=== PATIENT | male | born 1990 | race Caucasian/White ===

== ENCOUNTER 2025-02-05 22:26 | Observation (INO) | payer OTHER ==
--- NOTE | 2025-02-05 22:53 | ED ---
General Adult HPI - General Chief complaint: Alcohol Stated complaint: ETOH Time Seen by Provider: 02/05/25 22:29 Source: patient, EMS - History of Present Illness Initial comments: Patient is a 34 y/o male presenting today for alcohol intoxication. Of note EMS report pt states that he drank mouth wash however he denies this to me. Pt states he drank a 1/2 gallon of vodka today and drinks approx 1 gallon per day. Denies SI. Pt currently denies any recent falls/ head injuries. Denies complaints. Hx is limited by alcohol intoxication . - Related Data Home Medications Medication Instructions Recorded Confirmed No Known Home Medications 02/06/25 02/06/25 Allergies Allergy/AdvReac Type Severity Reaction Status Date / Time No Known Allergies Allergy Verified 02/09/25 01:50 Review of Systems ROS Statement: Those systems with pertinent positive or pertinent negative responses have been documented in the HPI. ROS Other: All systems not noted in ROS Statement are negative. Past Medical History Past Medical History: No Reported History History of Any Multi-Drug Resistant Organisms: None Reported Past Surgical History: No Surgical Hx Reported Smoking Status: Never smoker Past Alcohol Use History: Heavy Past Drug Use History: None Reported General Exam - General Exam Comments Initial Comments: PE: CONSTITUTIONAL: No apparent distress, well appearing, disheveled, smells strongly of alcohol SKIN: Warm, dry, no jaundice, hives or petechiae EYES: Pupils are equally round, extraocular movements intact without nystagmus, clear conjunctiva, non-icteric sclera HENT: Normocephalic, atraumatic, moist mucus membranes, oropharynx clear without exudates NECK: , Full range of motion, normal appearance PULMONARY: Clear to auscultation without wheezes, rhonchi, or rales, normal excursion, no accessory muscle use and no stridor CARDIOVASCULAR: Regular rate, rhythm, normal S1 and S2. No appreciated murmurs, rubs or gallops. Strong radial pulses with intact distal perfusion. No lower extremity edema GASTROINTESTINAL: Soft, active bowel sounds throughout, non-tender, non- distended, no palpable masses, no rebound or guarding. No hepatosplenomegaly: MUSCULOSKELETAL: Extremities have no gross deformity or signs of injury NEUROLOGIC:_a/o x 3, GCS 15, appears intoxicated, Moves all extremities x 4 without motor or sensory deficit PSYCHIATRIC:_normal mood and affect, thought process is linear Course Vital Signs 02/05/25 02/06/25 02/06/25 22:27 01:15 05:24 Temperature 97.6 F Pulse Rate 80 82 73 Respiratory 18 18 18 Rate Blood Pressure 115/69 118/82 107/74 O2 Sat by Pulse 96 99 96 Oximetry EKG Findings - EKG Comments: EKG Findings:: Sinus rhythm, rate 73 bpm intervals and except limits, no significant ST elevations or depressions, no arrhythmia Medical Decision Making - Medical Decision Making Was pt. sent in by a medical professional or institution (, PA, LEAD HOUSEKEEPER, urgent care, hospital, or senior living...) When possible be specific @ -No Did you speak to anyone other than the patient for history (EMS, parent, family, police, friend...)? What history was obtained from this source @ -No Did you review nursing and triage notes (agree or disagree)? Why? @ -I reviewed nursing and triage notes- of note states that pt drank mouthwash as well however pt denies this to myself Were old charts reviewed (outside hosp., previous admission, EMS record, old EKG, old radiological studies, urgent care reports/EKG's, senior living records)? Report findings @ -Medical records reviewed- no prior records for review Differential Diagnosis (chest pain, altered mental status, abdominal pain women, abdominal pain men, vaginal bleeding, weakness, fever, dyspnea, syncope, headache, dizziness, GI bleed, back pain, seizure, CVA, palpatations, mental health, musculoskeletal)? Differential diagnosis remains broad however top considerations include alcohol intoxication, polysubstance abuse, drug use, wernicke's encephalopathy, hyp oglycemia, this is not an all inclusive list EKG interpreted by me (3pts min.). @ -As above X-rays interpreted by me (1pt min.). @ -None done CT interpreted by me (1pt min.). @ -None done U/S interpreted by me (1pt. min.). @ -None done What testing was considered but not performed or refused? (CT, X-rays, U/S, labs)? Why? @ -None What meds were considered but not given or refused? Why? @ -None Did you discuss the management of the patient with other professionals (professionals i.e. , PA, LEAD HOUSEKEEPER, lab, RT, psych nurse, director social service, molder apprentice, teacher, president and chief executive officer, leather case finisher)? Give summary @ -No Was smoking cessation discussed for >3mins.? @ -No Was critical care preformed (if so, how long)? @ -No Were there social determinants of health that impacted care today? How? (Homelessness, low income, unemployed, alcoholism, drug addiction, transportation, low edu. Level, literacy, decrease access to med. care, intermediate, rehab)? @ -No Was there de-escalation of care discussed even if they declined (Discuss DNR or withdrawal of care, Hospice)? @ -No What co-morbidities impacted this encounter? (DM, HTN, Smoking, COPD, CAD, Cancer, CVA, ARF, Chemo, Hep., AIDS, mental health diagnosis, sleep apnea, morbid obesity)? alcoholism Was patient admitted / discharged? Hospital course, mention meds given and route, prescriptions, significant lab abnormalities, going to OR and other pertinent info. Admission- 34 y/o gentleman presenting today for alcohol intoxication. Pt denied co-ingestants to myself. Will obtain basic labs to ensure no severe electrolyte derangements, as well as blood alcohol. Pt will be monitored for signs of alcohol withdrawal. Labs are significant for mild hyponatremia sodium 146, potassium 3.3, UDS negative, blood alcohol 258. Patient will be started on D5 half-normal saline infusion. Due to extent of alcohol intoxication and amount of time it will require for pt to metabolize alcohol and become clinically sober, will be admitted for observation as he is high risk for alcohol withdrawal during this observation period. Pt discussed with Dr. Shelley, who kindly acccepted pt for admission. Undiagnosed new problem with uncertain prognosis? @ -No Drug Therapy requiring intensive monitoring for toxicity (Heparin, Nitro, Insulin, Cardizem)? @ -No Were any procedures done? @ -No Diagnosis/symptom? hypernatremia, alcohol intoxication hypokalemia Acute, or Chronic, or Acute on Chronic? @ acute Uncomplicated (without systemic symptoms) or Complicated (systemic symptoms)? @ uncomplicated Side effects of treatment? @ -No Exacerbation, Progression, or Severe Exacerbation? @ -No Poses a threat to life or bodily function? How? (Chest pain, [place], [place], pneumonia, PE, COPD, DKA, ARF, appy, cholecystitis, CVA, Diverticulitis, Homicidal, Suicidal, threat to staff... and all critical care pts) @unlikely - Lab Data Result diagrams: 02/05/25 23:06 02/05/25 23:06 Lab Results 02/05/25 02/05/25 02/05/25 Range/Units 23:06 23:06 23:06 WBC 8.38 (4.50-10.00) 10*3/uL RBC 4.15 L (4.40-5.60) 10*6/uL Hgb 12.7 L (13.0-17.0) g/dL Hct 37.1 L (39.6-50.0) % MCV 89.4 (80.0-97.0) fL MCH 30.6 (27.0-32.0) pg MCHC 34.2 (32.0-37.0) g/dL Plt Count 258 (140-440) 10*3/uL MPV 10.0 (9.5-12.2) fL Immature Gran % (Auto) 0.2 % Neutrophils % 48.8 % Lymphocytes % 42.8 % Monocytes % 6.7 % Eosinophils % 0.8 % Basophils % 0.7 % Immature Gran # 0.02 (0.00-0.04) 10*3/uL Neutrophils # 4.08 (1.80-7.70) 10*3/uL Lymphocytes # 3.59 (0.90-5.00) 10*3/uL Monocytes # 0.56 (0.20-1.00) 10*3/uL Eosinophils # 0.07 (0.04-0.35) 10*3/uL Basophils # 0.06 (0.00-0.10) 10*3/uL Sodium 146 H (137-145) mmol/L Potassium 3.3 L (3.5-5.1) mmol/L Chloride 110 H (98-107) mmol/L Carbon Dioxide 21 L (22-30) mmol/L Anion Gap 15 mmol/L BUN 12 (9-20) mg/dL Creatinine 0.75 (0.66-1.25) mg/dL Est GFR (CKD-EPI)AfAm >90 (>60 ml/min/1.73 sqM) Est GFR (CKD-EPI)NonAf >90 (>60 ml/min/1.73 sqM) Glucose 96 (74-99) mg/dL POC Glucose (mg/dL) 111 H (70-110) mg/dL POC Glu Electrician'S Assistant ID Elizabeth Martinez Calcium 9.4 (8.4-10.2) mg/dL Phosphorus 4.2 (2.5-4.5) mg/dL Magnesium 1.7 (1.6-2.3) mg/dL Total Bilirubin 0.5 (0.2-1.3) mg/dL AST 41 (17-59) U/L ALT 23 (4-49) U/L Alkaline Phosphatase 50 (38-126) U/L Total Protein 7.4 (6.3-8.2) g/dL Albumin 4.6 (3.5-5.0) g/dL Urine Opiates Screen (NotDetected) Ur Oxycodone Screen (NotDetected) Urine Methadone Screen (NotDetected) Ur Barbiturates Screen (NotDetected) U Tricyclic Antidepress (NotDetected) Ur Phencyclidine Scrn (NotDetected) Ur Amphetamines Screen (NotDetected) U Methamphetamines Scrn (NotDetected) U Benzodiazepines Scrn (NotDetected) Urine Cocaine Screen (NotDetected) U Marijuana (THC) Screen (NotDetected) Serum Alcohol 258 H* mg/dL 02/06/25 Range/Units 04:04 WBC (4.50-10.00) 10*3/uL RBC (4.40-5.60) 10*6/uL Hgb (13.0-17.0) g/dL Hct (39.6-50.0) % MCV (80.0-97.0) fL MCH (27.0-32.0) pg MCHC (32.0-37.0) g/dL Plt Count (140-440) 10*3/uL MPV (9.5-12.2) fL Immature Gran % (Auto) % Neutrophils % % Lymphocytes % % Monocytes % % Eosinophils % % Basophils % % Immature Gran # (0.00-0.04) 10*3/uL Neutrophils # (1.80-7.70) 10*3/uL Lymphocytes # (0.90-5.00) 10*3/uL Monocytes # (0.20-1.00) 10*3/uL Eosinophils # (0.04-0.35) 10*3/uL Basophils # (0.00-0.10) 10*3/uL Sodium (137-145) mmol/L Potassium (3.5-5.1) mmol/L Chloride (98-107) mmol/L Carbon Dioxide (22-30) mmol/L Anion Gap mmol/L BUN (9-20) mg/dL Creatinine (0.66-1.25) mg/dL Est GFR (CKD-EPI)AfAm (>60 ml/min/1.73 sqM) Est GFR (CKD-EPI)NonAf (>60 ml/min/1.73 sqM) Glucose (74-99) mg/dL POC Glucose (mg/dL) (70-110) mg/dL POC Glu Electrician'S Assistant ID Calcium (8.4-10.2) mg/dL Phosphorus (2.5-4.5) mg/dL Magnesium (1.6-2.3) mg/dL Total Bilirubin (0.2-1.3) mg/dL AST (17-59) U/L ALT (4-49) U/L Alkaline Phosphatase (38-126) U/L Total Protein (6.3-8.2) g/dL Albumin (3.5-5.0) g/dL Urine Opiates Screen Not Detected (NotDetected) Ur Oxycodone Screen Not Detected (NotDetected) Urine Methadone Screen Not Detected (NotDetected) Ur Barbiturates Screen Not Detected (NotDetected) U Tricyclic Antidepress Not Detected (NotDetected) Ur Phencyclidine Scrn Not Detected (NotDetected) Ur Amphetamines Screen Not Detected (NotDetected) U Methamphetamines Scrn Not Detected (NotDetected) U Benzodiazepines Scrn Not Detected (NotDetected) Urine Cocaine Screen Not Detected (NotDetected) U Marijuana (THC) Screen Not Detected (NotDetected) Serum Alcohol mg/dL Disposition Clinical Impression: Alcoholic intoxication, Hypernatremia Disposition: ADMITTED IP TO THIS [facility] Condition: Fair
[2025-02-05 23:07] LABS: Glucose,Whole Blood 111 mg/dL (70-110)
[2025-02-05] MEDS: SODIUM CHLORIDE 0.9% 1,000 ML IV STA (23:09)
[2025-02-05 23:37] LABS: Basophils # (A) 0.06 10*3/uL (0.00-0.10); Basophils % (A) 0.7 %; Eosinophils # (A) 0.07 10*3/uL (0.04-0.35); Eosinophils % (A) 0.8 %; HCT 37.1 % (39.6-50.0); HGB 12.7 g/dL (13.0-17.0); Lymphocytes # (A) 3.59 10*3/uL (0.90-5.00); Lymphocytes % (A) 42.8 %; MCH 30.6 pg (27.0-32.0); MCHC 34.2 g/dL (32.0-37.0); MCV 89.4 fL (80.0-97.0); Monocytes # (A) 0.56 10*3/uL (0.20-1.00); Monocytes % (A) 6.7 %; Neutrophils # (A) 4.08 10*3/uL (1.80-7.70); Neutrophils % (A) 48.8 %; Platelet Count 258 10*3/uL (140-440); RBC 4.15 10*6/uL (4.40-5.60); RDW 13.1 % (11.5-14.5); WBC 8.38 10*3/uL (4.50-10.00)
[2025-02-06 00:02] LABS: ALT 23 U/L (4-49); AST 41 U/L (17-59); African American GFR (CKD) >90 (>60 ml/min/1.73 sqM); Albumin 4.6 g/dL (3.5-5.0); Alkaline Phosphatase 50 U/L (38-126); Anion Gap 15 mmol/L; Blood Urea Nitrogen 12 mg/dL (9-20); Calcium 9.4 mg/dL (8.4-10.2); Carbon Dioxide 21 mmol/L (22-30); Chloride 110 mmol/L (98-107); Glucose 96 mg/dL (74-99); Magnesium 1.7 mg/dL (1.6-2.3); Non-African American GFR(CKD) >90 (>60 ml/min/1.73 sqM); Potassium 3.3 mmol/L (3.5-5.1); Sodium 146 mmol/L (137-145); Total Protein 7.4 g/dL (6.3-8.2)
[2025-02-06 04:27] LABS: Barbiturate Screen,Urine Not Detected (NotDetected); Benzodiazepines Screen,Urine Not Detected (NotDetected); Opiate Screen,Urine Not Detected (NotDetected); Oxycodone Screen, Urine Not Detected (NotDetected); Phencyclidine Screen,Urine Not Detected (NotDetected); Tricyclic Antidepressant,Urine Not Detected (NotDetected); Urn Cannabinoid Scrn Not Detected (NotDetected)
[2025-02-06] MEDS ORDERED: IBUPROFEN 400 MG TAB PO PRN (04:55)
[2025-02-06] MEDS ORDERED: NALOXONE 0.4 MG/ML 1 ML VIAL IV PRN (04:55)
[2025-02-06] MEDS ORDERED: chlordiazePOXIDE 25 MG CAP PO PRN ×3 (04:56)
[2025-02-06] MEDS ORDERED: LORazepam 1 MG TAB PO PRN (04:56)
[2025-02-06] MEDS ORDERED: LORazepam 1 MG/0.5 ML VIAL IV PRN (04:56)
[2025-02-06] MEDS: DEXTROSE 5%-0.45% NACL 1,000 ML IV ONE (05:35)
[2025-02-06] MEDS: ACETAMINOPHEN TAB 325 MG TAB PO PRN (06:22)
[2025-02-06] MEDS: chlordiazePOXIDE 25 MG CAP PO PRN (06:23)
[2025-02-06 07:45] VITALS: BP 111/67; PULSE 93; RESP 16; TEMP 98.1
[2025-02-06] MEDS: MULTIVITAMINS, THERA 1 EACH TAB PO SCH (09:26)
[2025-02-06] MEDS: FAMOTIDINE 20 MG TAB PO SCH (09:26)
[2025-02-06] MEDS: FOLIC ACID 1 MG TAB PO SCH (09:26)
--- NOTE | 2025-02-07 07:00 | P.HPIM ---
History of Present Illness H&P Date: 02/06/25 This is a 34-year-old male who presented to the emergency department with alcohol intoxication with an alcohol level of 258 and being admitted for acute EtOH as well as hyponatremia. Sodium was noted to be 146 and potassium 3.3, BUN is 12 with a creatinine of 0.75. Urine drug screen otherwise negative, hemoglobin stable at 12.7 and WBC within normal limits at 8.38. Patient does have a past medical history of hypertension, GERD, anxiety. Reports to being homeless and has no primary care provider at this time. Patient has been up this morning with a steady gait and does not appear to be withdrawing. Patient has no intentions of quitting alcohol and would like to leave today. Patient w as started on CIWA protocol. Patient reports he has to get back to work. REVIEW OF SYSTEMS: CONSTITUTIONAL: No fever, no malaise, no fatigue. HEENT: No recent visual problems or hearing problems. Denied any sore throat. CARDIOVASCULAR: No chest pain, orthopnea, PND, no palpitations, no syncope. PULMONARY: No shortness of breath, no cough, no hemoptysis. GASTROINTESTINAL: No diarrhea, no nausea, no vomiting, no abdominal pain. NEUROLOGICAL: No headaches, no weakness, no numbness. HEMATOLOGICAL: Denies any bleeding or petechiae. GENITOURINARY: Denies any burning micturition, frequency, or urgency. MUSCULOSKELETAL/RHEUMATOLOGICAL: Denies any joint pain, swelling, or any muscle pain. ENDOCRINE: Denies any polyuria or polydipsia. The rest of the 14-point review of systems is negative. PHYSICAL EXAMINATION: GENERAL: The patient is alert and oriented x3, not in any acute distress. Well developed, well nourished. Obese HEENT: Pupils are round and equally reacting to light. EOMI. No scleral icterus. No conjunctival pallor. Normocephalic, atraumatic. No pharyngeal erythema. No thyromegaly. CARDIOVASCULAR: S1 and S2 present. No murmurs, rubs, or gallops. PULMONARY: Chest is clear to auscultation, no wheezing or crackles. ABDOMEN: Soft, nontender, nondistended, normoactive bowel sounds. No palpable organomegaly. MUSCULOSKELETAL: No joint swelling or deformity. EXTREMITIES: No cyanosis, clubbing, or pedal edema. NEUROLOGICAL: Gross neurological examination did not reveal any focal deficits. SKIN: No rashes. Assessment: Acute alcohol intoxication History of hypertension Hypernatremia GERD Anxiety History of daily alcohol use Obesity with a BMI of 31.2 GI prophylaxis DVT prophylaxis Full code Plan: Patient was admitted for acute alcohol intoxication and also hyponatremia placed on CIWA protocol Patient is persistent on leaving and wanting to go home as he reports he has to work Patient has no intentions of quitting at this time and AA meetings and/or inpatient alcohol rehab suggested Patient will be leaving today. Guarded prognosis and high risk for readmissions given continued ongoing alcohol abuse The impression and plan of care has been dictated by Virginia Gallagher, Nurse Practitioner as directed. Dr. Haider MD I have performed a history and examination and MDM of this patient, discussed the same with the dictator, and agree with the dictator's assessment and plan as written ,documented as a scribe. Based on total visit time, I have performed more than 50% of the visit. Past Medical History Past Medical History: GERD/Reflux, Hypertension History of Any Multi-Drug Resistant Organisms: None Reported Past Surgical History: No Surgical Hx Reported Past Anesthesia/Blood Transfusion Reactions: Unable to Obtain Past Psychological History: Anxiety Smoking Status: Never smoker Past Alcohol Use History: Heavy Past Drug Use History: None Reported Medications and Allergies Home Medications Medication Instructions Recorded Confirmed Type No Known Home Medications 02/06/25 02/06/25 History Allergies Allergy/AdvReac Type Severity Reaction Status Date / Time No Known Allergies Allergy Verified 02/06/25 09:48 Physical Exam Vitals: Vital Signs Temp Pulse Resp BP Pulse Ox 02/06/25 07:44 98.1 F 93 16 111/67 97 Intake and Output 02/06/25 02/06/25 02/07/25 14:59 22:59 06:59 Intake Total 240 Balance 240 Intake: Oral 240 Other: Voiding Method Toilet Results CBC & Chem 7: 02/05/25 23:06 02/05/25 23:06 Thrombosis Risk Factor Assmnt - Choose All That Apply Any of the Below Risk Factors Present?: Yes Each Factor Represents 1 point: Obesity (BMI >25) Other Risk Factors: No Other congenital or acquired thrombophilia - If yes, enter type in comment: No Thrombosis Risk Factor Assessment Total Risk Factor Score: 1 Thrombosis Risk Factor Assessment Level: Low Risk
--- NOTE | 2025-02-07 08:54 | P.DS ---
Providers Date of admission: 02/06/25 04:56 Expected date of discharge: 02/06/25 Attending physician: Damien Maloney Primary care physician: Stated None Hospital Course: Final diagnosis Acute alcohol intoxication, blood alcohol level 258 on admission History of hypertension Hypernatremia GERD Anxiety History of daily alcohol use Obesity with a BMI of 31.2 GI prophylaxis DVT prophylaxis Full code Discharge disposition Patient is being discharged in a stable condition with guarded prognosis to home. Patient will follow-up with Dr. Douglas Maloney in the outpatient setting upon discharge. Patient is to avoid alcohol use and would strongly recommend inpatient alcohol rehab and/or AA meetings as scheduled. Total time taken is greater than 35 minutes. Hospital course This is a 34-year-old male who presented to the emergency department with alcohol intoxication with an alcohol level of 258 and being admitted for acute EtOH as well as hyponatremia. Sodium was noted to be 146 and potassium 3.3, BUN is 12 with a creatinine of 0.75. Urine drug screen otherwise negative, hemoglobin stable at 12.7 and WBC within normal limits at 8.38. Patient does have a past medical history of hypertension, GERD, anxiety. Reports to being h omeless and has no primary care provider at this time. Patient has been up this morning with a steady gait and does not appear to be withdrawing. Patient has no intentions of quitting alcohol and would like to leave today. Patient was started on CIWA protocol. Patient reports he has to get back to work. PHYSICAL EXAMINATION: GENERAL: The patient is alert and oriented x3, not in any acute distress. Well developed, well nourished. Obese HEENT: Pupils are round and equally reacting to light. EOMI. No scleral icterus. No conjunctival pallor. Normocephalic, atraumatic. No pharyngeal erythema. No thyromegaly. CARDIOVASCULAR: S1 and S2 present. No murmurs, rubs, or gallops. PULMONARY: Chest is clear to auscultation, no wheezing or crackles. ABDOMEN: Soft, nontender, nondistended, normoactive bowel sounds. No palpable organomegaly. MUSCULOSKELETAL: No joint swelling or deformity. EXTREMITIES: No cyanosis, clubbing, or pedal edema. NEUROLOGICAL: Gross neurological examination did not reveal any focal deficits. SKIN: No rashes. Please refer to medication reconciliation sheet for a list of medications. The impression and plan of care has been dictated by Virginia Gallagher, Nurse Practitioner as directed. Dr. Haider MD I have performed a history and examination and MDM of this patient, discussed the same with the dictator, and agree with the dictator's assessment and plan as written ,documented as a scribe. Based on total visit time, I have performed more than 50% of the visit. Patient Condition at Discharge: Fair Plan - Discharge Summary Discharge Rx Participant: Yes New Discharge Prescriptions: No Action No Known Home Medications Discharge Medication List No Known Home Medications 02/06/25 [History] Follow up Appointment(s)/Referral(s): None,Stated [Primary Care Provider] - 1-2 days Discharge Disposition: LEFT AGAINST MEDICAL ADVICE
[2025-02-07] MEDS ORDERED: THIAMINE 100 MG TAB PO SCH (09:00)
== END 2025-02-06 10:10 | disposition left against medical advice (07) ==
LOC: EC 22:26 → 5NMEDONC 02-06 04:56
PROVIDERS: ADMIT Hospitalist; ATTEND Hospitalist
DX: F10.129 Alcohol abuse with intoxication, unspecified (principal); E87.0 Hyperosmolality and hypernatremia; E87.1 Hypo-osmolality and hyponatremia; I10 Essential (primary) hypertension; K21.9 Gastro-esophageal reflux disease without esophagitis; F41.9 Anxiety disorder, unspecified; E66.9 Obesity, unspecified; Z68.31 Body mass index [BMI] 31.0-31.9, adult; Y90.8 Blood alcohol level of 240 mg/100 ml or more; Z59.00 Homelessness unspecified
CPT/HCPCS: 99285; 36415; 93005; 80053; 83735; 84100; 85025; 80306; G0378; G0480; 80320

== ENCOUNTER 2025-02-09 01:40 | Emergency (ER) | payer OTHER ==
--- NOTE | 2025-02-09 02:23 | ED ---
General Adult HPI - General Chief complaint: Alcohol Stated complaint: Dizziness, Body Aches Time Seen by Provider: 02/09/25 01:54 Source: patient, EMS, RN notes reviewed, old records reviewed Mode of arrival: EMS Limitations: altered mental status - History of Present Illness Initial comments: 34-year-old male presenting with alcohol intoxication. Patient was recently admitted with alcohol intoxication and was offered rehabilitation. Patient declined at that time. Today he is stating that he wishes to go to [facility] rehabilitation. Patient states he is hungry and thirsty. He admits to heavy alcohol consumption today. No suicidal or homicidal ideation. - Related Data Home Medications Medication Instructions Recorded Confirmed No Known Home Medications 02/06/25 02/06/25 Allergies Allergy/AdvReac Type Severity Reaction Status Date / Time No Known Allergies Allergy Verified 02/09/25 01:50 Review of Systems ROS Statement: Those systems with pertinent positive or pertinent negative responses have been documented in the HPI. ROS Other: All systems not noted in ROS Statement are negative. Past Medical History Past Medical History: GERD/Reflux, Hypertension History of Any Multi-Drug Resistant Organisms: None Reported Past Surgical History: No Surgical Hx Reported Past Anesthesia/Blood Transfusion Reactions: Unable to Obtain Past Psychological History: Anxiety Smoking Status: Never smoker Past Alcohol Use History: Heavy Past Drug Use History: None Reported General Exam Limitations: altered mental status General appearance: alert, appears intoxicated Head exam: Present: atraumatic, normocephalic Eye exam: Present: normal appearance, PERRL ENT exam: Present: normal exam Neck exam: Present: normal inspection. Absent: tenderness, meningismus Respiratory exam: Present: normal lung sounds bilaterally. Absent: respiratory distress, wheezes Cardiovascular Exam: Present: regular rate, normal rhythm GI/Abdominal exam: Present: soft. Absent: distended, tenderness, guarding Neurological exam: Present: alert, oriented X3, CN II-XII intact. Absent: motor sensory deficit Psychiatric exam: Present: normal affect, normal mood Skin exam: Present: warm, dry, intact Course Vital Signs 02/09/25 01:43 Temperature 97.6 F Pulse Rate 70 Respiratory 20 Rate Blood Pressure 109/98 O2 Sat by Pulse 97 Oximetry Medical Decision Making - Medical Decision Making Was pt. sent in by a medical professional or institution (, PA, RECORD CENTER COORDINATOR, urgent care, hospital, or penitentiary...) When possible be specific @ -No Did you speak to anyone other than the patient for history (EMS, parent, family, police, friend...)? What history was obtained from this source @ -No Did you review nursing and triage notes (agree or disagree)? Why? @ -I reviewed and agree with nursing and triage notes Were old charts reviewed (outside hosp., previous admission, EMS record, old EKG, old radiological studies, urgent care reports/EKG's, penitentiary records)? Report findings @ -No old charts were reviewed Differential Diagnosis: Alcohol intoxication, electrolyte abnormality, dehydration, alcohol withdrawal syndrome EKG interpreted by me (3pts min.). @ -As above X-rays interpreted by me (1pt min.). @ -None done CT interpreted by me (1pt min.). @ -None done U/S interpreted by me (1pt. min.). @ -None done What testing was considered but not performed or refused? (CT, X-rays, U/S, labs)? Why? @ -None What meds were considered but not given or refused? Why? @ -None Did you discuss the management of the patient with other professionals (shan [email or web address] i.e. , PA, RECORD CENTER COORDINATOR, lab, RT, psych nurse, psych social worker, preschool program director, teacher, house officer, binder caser)? Give summary @ -No Was smoking cessation discussed for >3mins.? @ -No Was critical care preformed (if so, how long)? @ -No Were there social determinants of health that impacted care today? How? (Homelessness, low income, unemployed, alcoholism, drug addiction, transportation, low edu. Level, literacy, decrease access to med. care, alf, rehab)? @ -No Was there de-escalation of care discussed even if they declined (Discuss DNR or withdrawal of care, Hospice)? DNR status @ -No What co-morbidities impacted this encounter? (DM, HTN, Smoking, COPD, CAD, Cancer, CVA, ARF, Chemo, Hep., AIDS, mental health diagnosis, sleep apnea, morbid obesity)? @ -[Alcohol abuse Was patient admitted / discharged? Hospital course, mention meds given and route, prescriptions, significant lab abnormalities, going to OR and other pertinent info. @ -34-year-old male with alcohol intoxication, patient requesting rehabilitation through [facility]. Patient is given contact information for [facility] and allowed to sober up in the emergency department. He is given food and water. Vital signs are stable. Stable for discharge to rehabilitation. Undiagnosed new problem with uncertain prognosis? @ -[No Drug Therapy requiring intensive monitoring for toxicity (Heparin, Nitro, Insulin, Cardizem)? @ -No Were any procedures done? @ -No Diagnosis/symptom? @Alcohol abuse, alcohol intoxication. Acute, or Chronic, or Acute on Chronic? @ -Chronic Uncomplicated (without systemic symptoms) or Complicated (systemic symptoms)? @ -Default Side effects of treatment? @ -No Exacerbation, Progression, or Severe Exacerbation? @ -No Poses a threat to life or bodily function? How? (Chest pain, [place], CA, pneumonia, PE, COPD, DKA, ARF, appy, cholecystitis, CVA, Diverticulitis, Homicidal, Suicidal, threat to staff... and all critical care pts) @ -No Disposition Clinical Impression: Alcoholic intoxication Disposition: HOME SELF-CARE Condition: Fair Instructions (If sedation given, give patient instructions): Alcohol Intoxication (ED) Additional Instructions: Please go directly to [facility]. Is patient prescribed a controlled substance at d/c from ED?: No Referrals: Nick Tinsley DO [Primary Care Provider] - 1-2 days Time of Disposition: 07:00
[2025-02-09 07:38] VITALS: BP 119/77; PULSE 101; RESP 16; TEMP 98.8
== END 2025-02-09 07:54 | disposition home or self-care (01) ==
LOC: EC 01:40
DX: F10.129 Alcohol abuse with intoxication, unspecified (principal); Y90.9 Presence of alcohol in blood, level not specified
CPT/HCPCS: 99284